=== PATIENT | male | born 1985 | race Caucasian/White ===

== ENCOUNTER 2024-04-11 20:49 | Emergency (ER) | payer OTHER, SELFPAY ==
[2024-04-11 20:56] VITALS: BP 135/87; PULSE 78; RESP 14; TEMP 36.7; O2SAT 100
--- NOTE | 2024-04-11 21:26 | ED.WOUNDLAC ---
HPI - Wound/Laceration General Chief Complaint: Wound/Laceration Stated Complaint: fall, laceration Time Seen by Provider: 04/11/24 21:13 History of Present Illness HPI narrative: 38-year-old male presents with at bedside for a head injury that occurred a few hours prior to arrival. Patient states he was setting up camera as on his carport when he stepped down off the ladder instead of to quickly, hitting his head up the top of the carport. He obtained a laceration to his right superior parietal scalp, bleeding is controlled. He did not lose consciousness. He is not anticoagulated. He denies seizure-like activity, vomiting, vision changes, amnesia. Last Tdap unknown. Related Data Allergies Allergy/AdvReac Type Severity Reaction Status Date / Time No Known Allergies Allergy Verified 04/11/24 21:00 Review of Systems Review of Systems: All systems reviewed & are unremarkable except as noted in HPI and below Exam Narrative: GENERAL: Well-appearing, well-nourished, and in no acute distress. HEAD: Normocephalic EYES: PERRLA and EOMI. ENT: Nares clear, no rhinorrhea or epistaxis. Mucous membranes moist. No hemotympanum. . No Clemente sign or raccoon eyes NECK: Supple. CHEST: Clear to auscultation. No respiratory distress. HEART: Regular rate and rhythm. No murmur heard. Normal peripheral pulses. EXTREMITIES: Normal range of motion. No edema. SKIN: 4 cm very superficial linear laceration to the right superior parietal scalp, laceration very well approximated with no BP wounds, no deep structures or foreign bodies visualized, no active bleeding. No surrounding hematoma, scalp crepitus, ecchymosis NEURO: No focal deficits. Alert and oriented x4. Cranial nerves 2-12 intact. Strength 5/5 in BUE and BLE. Sensation intact throughout. Normal rduoeo-ad-dwds. No pronator drift. Course Vital Signs Vital signs: Vital Signs Temperature 98.0 F 04/11/24 20:56 Pulse Rate 78 04/11/24 20:56 Respiratory Rate 14 04/11/24 20:56 Blood Pressure 135/87 04/11/24 20:56 Pulse Oximetry 100 04/11/24 20:56 Oxygen Delivery Room Air 04/11/24 20:56 Temperature 98.0 F 04/11/24 20:56 Pulse Rate 78 04/11/24 20:56 Respiratory Rate 14 04/11/24 20:56 Blood Pressure 135/87 04/11/24 20:56 Pulse Oximetry 100 04/11/24 20:56 Oxygen Delivery Room Air 04/11/24 20:56 Procedures Laceration Laceration 1: Date: 04/11/24 Time: 21:31 Site: scalp Size (cm): 4 Description: linear Depth: simple, single layer Pre-repair: wound explored and irrigated ====== Skin Level ====== Skin layer closed with: dermabond ====== Subcutaneous Layer ====== ====== Muscle Layer ====== ====== Tendon Layer ====== MDM - Wound/Laceration MDM Narrative Medical decision making narrative: 38-year-old male presents to emergency department for a head injury and laceration to the scalp that occurred a few hours prior to arrival. See HPI for further history. Triage vitals stable. Patient is neurovascularly intact. He has no signs or symptoms of basilar skull fracture, he is not anticoagulated, no amnesia or seizure-like activity. Patient and family at bedside agree CT brain is unnecessary per Faroese CT head injury/trauma rule. The laceration is very superficial in nature with no gaping wounds, to the structures or foreign bodies. There is no active bleeding, no surrounding hematoma or ecchymosis. laceration cleansed with normal saline and a thin layer of skin glue was applied over the laceration to encourage continuation of close approximation. Tdap updated in the ED. Wound care and strict ED return precautions were discussed. patient and are agreeable with the plan verbalized understanding. Discharged in stable condition. Discharge Plan Discharge Clinical Impression: Laceration of scalp, Head injury Patient Disposition: Home, Self-Care Condition: Stable Instructions: Antibiotic Form, Laceration (ED), Head Injury (DC) Additional Instructions: Your evaluated in the emergency department after head injury and laceration to her scalp. Your neurologic exam is reassuring. The laceration is very superficial but was cleaned with normal saline and closed with skin glue. Please keep the area clean and dry. Return to the emergency department if you develop vision changes, focal numbness or weakness, vomiting, altered mental status, surrounding redness or drainage to your wound, fever, or other concerning symptoms. Your tetanus shot was also updated today. Patient Language: Rwandan Follow-up/Referrals: UNKNOWN,DOCTOR [Non-Staff] -
[2024-04-11] MEDS: TETANUS,DIPHTHERIA,AC PERTUSSIS ADULT (0.5 ML) BOOSTRIX IM (21:32)
--- OUTSIDE RECORDS SUMMARY | 2024-04-11 21:43 | XMS_ITS | Patient Health Summary ---
Author Organization [facility] Address [address] [place] [address] Care Team Providers Care Communications Billing Analyst Name Role Phone Unavailable Primary Care Provider Unavailabl e Note from [facility],non-owned Affiliates and Associated Physician Practices is amultiple site organization consisting of ambulatory clinics and hospital sitesin [place], [place], [place] and [place]. This disclosure is being madepursuant to the Care Everywhere program and may not contain all information available regarding this patient. Last updated 17.[facility] Allergies No known active allergies Medications * Be aware that medications may not be up to date on this document. Alwaysverify current medications with the patient. * Esomeprazole Magnesium (NEXIUM PO) Social History Tobacco Use Types Packs/Day Years Used Date Smoking Tobacco: Former Sex and Gender Information Value Date Recorded Sex Assigned at Not on file Gender Identity Not on file Sexual Orientation Not on file Last Filed Vital Signs Vital Sign Reading Time Taken Comments Blood Pressure 128/76 01/29/2017 9:11 AM BUDGET ACCOUNTANT Pulse 110 01/29/2017 9:11 AM BUDGET ACCOUNTANT Temperature 38.1 C (100.5 F) 01/29/2017 9:11 AM BUDGET ACCOUNTANT Respiratory Rate - - Oxygen Saturation - - Inhaled Oxygen Concentration - - Weight 97.5 kg (215 lb) 01/29/2017 9:11 AM BUDGET ACCOUNTANT Height 180.3 cm (5' 11 ) 01/29/2017 9:11 AM BUDGET ACCOUNTANT Body Mass Index 29.99 01/29/2017 9:11 AM BUDGET ACCOUNTANT Procedures * STREP A SCREEN - POINT OF CARE (AMB) STL(Performed 01/29/2017) Performed for Tonsillitis Results * STREP A SCREEN - POINT OF CARE (AMB) STL (01/29/2017) Strep A Rapid POCT Negative Negative Strep A Internal Control Present Lot # [id number] Expiration Date 57527 Throat ENTIRE THROAT (SURFACE REGION OF NECK) / Unknown 01/29/2017 Hortensia Conteh CONDITIONING COACH-CHUTE TAPPER LAB - POINT OF CARE ORDERABLES
--- OUTSIDE RECORDS SUMMARY | 2024-04-11 21:43 | XMS_ITS | Encounter Summary ---
Author Organization [facility] Address [address] [place] [address] Phone Care Team Providers Care Fuel Cell Binder Name Role Phone Sheldon Browne MD Primary Care Provider [phone] Reason for Visit * Reason Comments Medication Refill Encounter Details Date Type Department Care Team (Late st Contact Info) Description 06/11/2021 Refill [facility] - Family Medicine - [place] [address] [place] [id number] Dyan Honeycutt Elizabeth, [facility] [address] [place] [address] Medication Refill Social History Tobacco Use Types Packs/Day Years Used Date Smoking Tobacco: Every Day Cigarettes 0.5 15 Smokeless Tobacco: Never Alcohol Use Standard Drinks/Week Comments Yes 10 (1 standard drink = 0.6 oz pu re alcohol) PHQ-2 Answer Date Recorded Total Score - Questions 1-9 0 02/01 Education Answer Date Recorded What is the highest level of school you have completed or the highest degree you have received? 12th grade 11/20/2020 Sexually Active Control Partners Comments Yes Sex and Gender Information Value Date Recorded Sex Assigned at Not on file Legal Sex Male 10:38 PM CDT Gender Identity Not on file Sexual Orientation Not on file documented as of this encounter Miscellaneous Notes * Telephone Encounter - Ashley Blanca - 06/13/2021 12:40 PM CDT My chart message sent to pt to make him aware. * Telephone Encounter - Dyan Honeycutt PAC - 06/13/2021 8:57 AM CDT Renewed for 2 months. Further refills from his primary care provider. * Telephone Encounter - Megan Duran RN - 06/13/2021 8:37 AM CDT Pharmacy requesting refill of: Requested Prescriptions Pending Prescriptions Disp Refills ??? esomeprazole (NexIUM) 40 MG CAPSULE DELAYED RELEASE [Pharmacy Med Name: ESOMEPRAZOLE MAGNESIUM 40MG DR FRANKLIN] 60 Capsule 3 Sig: TAKE 1 CAPSULE BY MOUTH TWICE DAILY Last fill: 09/18/2020 Patients last OV with GI: 02/09/2020 Next Office Visit with GI: None scheduled. Patient had EGD with Dr. Johnson on 04/21/2020: Saul Johnson, DO 04/24/2020 ??8:55 PM OSTEOPATHIC PHYSICIAN Biopsies negative. Nexium order pended, please review. documented in this encounter Plan of Treatment Not on file documented as of this encounter Visit Diagnoses Diagnosis Gastroesophageal reflux disease without esophagitis Esophageal reflux documented in this encounter Additional Health Concerns Assessment Noted Time PHQ-9 Depression Total Score: 0 01/12/20 20 1:44 PM OSTEOPATHIC PHYSICIAN documented as of this encounter Care Teams Fuel Cell Binder Relationship Specialty Start Date End Date Sheldon Browne MD [address] [address] PCP - General Family Medicine 11/13/15 documented as of this encounter
--- OUTSIDE RECORDS SUMMARY | 2024-04-11 21:43 | XMS_ITS | Referral Summary ---
Author Organization [facility] Address [address] [place] [address] Care Team Providers Care Installer Soft Top Name Role Phone Sheldon Browne MD Primary Care Provider [phone] Allergies No known active allergies Medications No known medications Active Problems Problem Noted Date Diagnosed Date Allergic state 01/21/2013 Overview (06/06/2016): ALLERGY, UNSPECIFIED Immunizations Name Administration Dates Next Due Influenza, Split 02/07/2011 Td, adsorbed 03/03/2006 Social History Tobacco Use Types Packs/Day Years Used Date Smoking Tobacco: Never Assessed Comments:Smoking History Pac ks/day: 0 Packs Alcohol Use Standard Drinks/Week Comments Yes 0 (1 standard drink = 0.6 oz pur e alcohol) Sex and Gender Information Value Date Recorded Sex Assigned at Not on file Legal Sex Male 12:48 PM CRITICAL CARE TRANSPORT NURSE Gender Identity Not on file Sexual Orientation Not on file Last Filed Vital Signs Vital Sign Reading Time Taken Comments Blood Pressure 146/91 06/27/2022 11:00 AM CDT Pulse 72 06/27/2022 11:00 AM CDT Temperature - - Respiratory Rate - - Oxygen Saturation - - Inhaled Oxygen Concentration - - Weight 104.5 kg (230 lb 6.4 oz) 023 11:00 AM CDT Height 177.8 cm (5' 10 ) 06/27/2022 11: 00 AM CDT Body Mass Index 33.06 06/27/2022 11:00 AM CDT Plan of Treatment Not on file Procedures Procedure Name Priority Date/Time Associated Diagnosis Comments SERUM LIPID PANEL Routine 10/24/2012 3:4 5 AM CDT from Last 3 Months or Most Recently Relevant to Health Maintenance Results * Serum lipid panel (10/24/2012 3:45 AM CDT) Cholesterol 182 125 - 200 mg/dl HISTORICAL RESULTS HDL 46 > OR = 40 mg/dl HISTORICAL RESULTS Triglycerides 138 <150 mg/dl HISTO RICAL RESULTS LDL 108 <130 mg/dl HISTORICA L RESULTS Comment: Desirable range <100 mg/dL for patients with CHD or diabetes and <70 mg/dL for diabetic patients with known heart disease. Chol/HDL ratio 4.0 < OR = 5.0 calc HISTORICAL RESULTS Non-HDL cholesterol, calculated 136 mg/dl HISTORICAL RESULTS Comment: Target for non-HDL cholesterol is 30 mg/dL higher than LDL cholesterol target. Serum 10/24/2012 3:45 AM CDT Narrative HISTORICAL RESULTS - 10/25/2012 2:00 AM CDT Test performed at [facility] [address] [place] [address] Director: WEN BUTCHER DO,MPH us Historical Provider LAB BLOOD ORDERABLES Kaye l Result HISTORICAL RESULTS from Last 3 Months or Most Recently Relevant to Health Maintenance Insurance [employer] Care Teams Installer Soft Top Relationship Specialty Start Date End Date Sheldon Browne MD [address] [id number] PCP - General 01/10/17
--- OUTSIDE RECORDS SUMMARY | 2024-04-11 21:43 | XMS_ITS | Clinical Summary ---
Author Organization [facility] Address [address] [place] [address] Care Team Providers Care Black Belt Name Role Phone Sheldon Browne MD Primary Care Provider [phone] Allergies No known active allergies Medications No known medications Active Problems Problem Noted Date Diagnosed Date Allergic state 01/21/2013 Overview (06/06/2016): ALLERGY, UNSPECIFIED Immunizations Name Administration Dates Next Due Influenza, Split 02/07/2011 Td, adsorbed 03/03/2006 Surgical History Surgery Date Site/Laterality Comments OTHER SURGICAL HISTORY R shoulder injury (poss clavicle fx, tear?): 4 estevez accident Medical History Medical History Date Comments Hx Other Medical 2004 R shoulder inju ry (poss clavicle fx, tear?) Hx Other Medical 2011 ER visit for pi nched nerve Family History Medical History Relation Name Comments Hypertension Father Hypertension; Other Mother 2 Alive and well; Breast cancer Mother's Sister Cancer -warner ast; Relation Name Status Comments Father Mother 1 Alive Mother 2 Mother's Sister Social History Tobacco Use Types Packs/Day Years Used Date Smoking Tobacco: Never Assessed Comments:Smoking History Pac ks/day: 0 Packs Alcohol Use Standard Drinks/Week Comments Yes 0 (1 standard drink = 0.6 oz pur e alcohol) Sex and Gender Information Value Date Recorded Sex Assigned at Not on file Legal Sex Male 12:48 PM SANDBLASTER SUPERVISOR Gender Identity Not on file Sexual Orientation Not on file Obstetrics History Last Filed Vital Signs Vital Sign Reading [...] 06/27/2022 11:00 AM CDT Plan of Treatment Health Maintenance Due Date Last Done Comments Albumin Creatinine Ratio, Urine 1987 Depression Screening 1987 Hemoglobin A1C 1987 Hepatitis C Screening 1987 eGFR 1987 Dilated Eye Exam 1987 Foot Exam 1987 Pneumococcal vaccine <65 (1 of 2 - PCV) 10/29/1993 Varicella Vaccines (1 of 2 - 13+ 2-dose series) 10/29/2000 Hepatitis B Screening 10/29/2005 Regular Well Visit/Exam 18-64 10/29/2005 DTaP/Tdap/Td Vaccine (1 - Tdap) 03/04/2006 03/03/2006 Lipid Panel 10/24/2013 10/24/2012 Covid-19 Vaccine (3 - 2023-2 5 season) 2023 01/05/2021, 12/05/2020 Influenza Vaccine (#1) 2023 02/07/2011 HPV Vaccines Aged Out No longer eligi ble based on patient's age to complete this topic Procedures Procedure Name Priority Date/Time Associated Diagnosis [...] 10/25/2012 2:00 AM CDT [place] [address] [address] [id number] Director: WEN BUTCHER DO,MPH us Historical Provider LAB BLOOD ORDERABLES Kaye younger Result HISTORICAL RESULTS from Last 3 Months or Most Recently Relevant to Health Maintenance Insurance [employer] Care Teams Black Belt Relationship Specialty Start Date End Date Sheldon Browne MD [address] [place] [phone] (Work) [facility] - General 01/10/17
--- OUTSIDE RECORDS SUMMARY | 2024-04-11 21:43 | XMS_ITS | Referral Summary ---
Author Organization [facility] Address [address] [place] [address] Care Team Providers Care College President Name Role Phone Unavailable Primary Care Provider Unavailabl e Source Comments [facility],non-owned Affiliates and Associated Physician Practices is amultiple site organization consisting of ambulatory clinics and hospital sitesin [place], [place], [place] and [place]. This disclosure is being madepursuant to the Care Everywhere program and may not contain all information available regarding this patient. Last updated 17.[facility] Allergies No known active allergies Medications * Be aware that medications may not be up to date on this document. Alwaysverify current medications with the patient. Medication Sig Dispensed Refills Start Date End Date Status Esomeprazole Magnesium (NEXIUM PO) Active Social History Tobacco Use Types Packs/Day Years Used Date Smoking Tobacco: Former Sex and Gender Information Value Date Recorded Sex Assigned at Not on file Gender Identity Not on file Sexual Orientation Not on file Last Filed Vital Signs Vital Sign Reading Time Taken Comments Blood Pressure 128/76 01/29/2017 9:11 AM CRITICAL POWER INSTALL TECHNICIAN Pulse 110 01/29/2017 9:11 AM CRITICAL POWER INSTALL TECHNICIAN Temperature 38.1 C (100.5 F) 01/29/2017 9:11 AM CRITICAL POWER INSTALL TECHNICIAN Respiratory Rate - - Oxygen Saturation - - Inhaled Oxygen Concentration - - Weight 97.5 kg (215 lb) 01/29/2017 9:11 AM CRITICAL POWER INSTALL TECHNICIAN Height 180.3 cm (5' 11 ) 01/29/2017 9:11 AM CRITICAL POWER INSTALL TECHNICIAN Body Mass Index 29.99 01/29/2017 9:11 AM CRITICAL POWER INSTALL TECHNICIAN Plan of Treatment Not on file
--- OUTSIDE RECORDS SUMMARY | 2024-04-11 21:43 | XMS_ITS | Clinical Summary ---
Author Organization [facility] Address [address] [place], [address] [address] Phone Care Team Providers Care Cellular Equipment Repairer Name Role Phone Sheldon Browne MD Primary Care Provider Allergies Active Allergy Reactions Criticality Noted Date Comments Hydrocodone-Acetaminophen Nausea 11/13/2015 Other Runny Nose 11/13/2015 Grass, dust, mold Runny nose, flu like symptoms Pollen Extract Runny Nose 11/13/2015 Flu like symptoms Medications No known medications Active Problems Problem Noted Date Diagnosed Date Gastroesophageal reflux disease without esophagi tis 02/09/2020 Immunizations Immunization Administration Dates Next Due Influenza Vaccine 02/07/2011 TD VACCINE 03/03/2006 Family History Medical History Relation Name Comments Hypertension Father Cancer Maternal Aunt skin, breast Stroke Maternal Grandfather Cancer Maternal Grandmother breast, blood cancer Hypertension Mother No Known Problems Paternal Grandmother Hypertension Paternal Uncle Stroke Paternal Uncle Relation Name Status Comments Father Maternal Aunt Maternal Grandfather Maternal Grandmother Mother Paternal Grandmother Alive Paternal Uncle Social History Tobacco Use Types Packs/Day Years Used Date Smoking Tobacco: Every Day Cigarettes 0.5 15 Smokeless Tobacco: Never Tobacco Cessation:Ready to Q uit: No; Counseling Given: Yes Alcohol Use Standard Drinks/Week Comments Yes 10 (1 standard drink = 0.6 oz pu re alcohol) [facility] Utilities Answer Date Recorded In the past 12 months has th e electric, gas, oil, or water company threatened to shut off services in your home? No 06/17/2023 Social Connection and Isolat ion Panel [NHANES] Answer Date Recorded In a typical week, how many times do you talk on the phone with family, friends, or neighbors? More than three times a week 06/17/2023 How often do you get togethe r with friends or relatives? Twice a week 06/17/2023 How often do you attend chur ch or adventist services? Never 06/17/2023 Do you belong to any clubs o r organizations such as congregational groups, unions, fraternal or athletic groups, or school groups? No 06/17/2023 How often do you attend meet ings of the clubs or organizations you belong to? Never 06/17/2023 Are you , , di vorced, , never , or living with a partner? 06/17/2023 AUDIT-C Answer Date Recorded Q1: How often do you have a drink containing alc ohol? Patient declined 06/17/2023 Q2: How many drinks containi ng alcohol do you have on a typical day when you are drinking? Patient declined 06/17/2023 Q3: How often do you have si x or more drinks on one occasion? Patient declined 06/17/2023 Overall Financial Resource Strain (CARDIA) Answe r Date Recorded How hard is it for you to pa y for the very basics like food, housing, medical care, and heating? Somewhat hard 06/17/2023 PHQ-2 Answer Date Recorded Total Score - Questions 1-9 0 06/01 [facility] - Occupational Stress Questionnaire Answer Date Recorded Do you feel stress - tense, restless, nervous, or anxious, or unable to sleep at night because your mind is troubled all the time - these days? Only a little 06/17/2023 Exercise Vital Sign Answer Date Recorde d On average, how many days pe r week do you engage in moderate to strenuous exercise (like a brisk walk)? 7 days 06/17/2023 On average, how many minutes do you engage in exercise at this level? 60 min 06/17/2023 Hunger Vital Sign Answer Date Recorded Within the past 12 months, y ou worried that your food would run out before you got the money to buy more. Never true 06/17/19 24 Within the past 12 months, t he food you bought just didn't last and you didn't have money to get more. Never true 06/17/2023 PRAPARE - Transportation Answer Date Re corded In the past 12 months, has l ack of transportation kept you from medical appointments or from getting medications? No 06/01 In the past 12 months, has l ack of transportation kept you from meetings, work, or from getting things needed for daily living? No 06/17/2023 Housing Stability Vital Sign Answer Juan Pablo e Recorded In the last 12 months, was t here a time when you were not able to pay the mortgage or rent on time? No 06/17/2023 In the last 12 months, how many places have you lived? 1 06/17/2023 In the last 12 months, was t here a time when you did not have a steady place to sleep or slept in a jail (including now)? No 06/17/2023 Education Answer Date Recorded What is the [...] Sign Reading Time Taken Comments Blood Pressure 120/68 07/25/2023 4:14 PM CDT Pulse 81 07/25/2023 4:14 PM CDT Temperature 36.4 C (97.5 F) 07/25/2023 4:14 PM CDT Respiratory Rate 16 07/25/2023 4:14 PM CDT Oxygen Saturation 96% 07/25/2023 4:14 PM CDT Inhaled Oxygen Concentration - - Weight 87.7 kg (193 lb 6.4 oz) 07/25/2023 4:14 P M CDT Height 177.8 cm (5' 10 ) 07/25/2023 4:14 PM CDT Body Mass Index 27.75 07/25/2023 4:14 PM CDT Plan of Treatment Health Maintenance Due Date Last Done Comments Hepatitis C Virus (HCV) Screening 1987 TdaP Immunization 1987 Hepatitis B Immunization (1 of 3 - 19+ 3-dose series) 10/29/2006 Pneumococcal Immunization Combined (1 of 2 - PCV) 10/29/2006 Influenza Immunization (#1) 2023 02/07/2011 SARS-COV-2 Immunization (3 - 2023- season) 2023 01/05/2021, 12/05/2020 Respiratory Syncytial Virus (RSV) Immunization (Adult) (1 - 1-dose 75+ series) 10/29/2062 Meningococcal Immunization (ACWY) Aged Out No longer eligible b ased on patient's age to complete this topic Rotavirus Immunization Aged Out No lo nger eligible based on patient's age to complete this topic Insurance [facility] Advance Directives * Full Code (Latest Code Status on File) Date Activated Date Inactivated Comments 09/02/2017 7:42 AM 09/02/2017 3:25 PM CPR-Full Treat ment: FULL ARREST: Attempt Resuscitation/CPR wit intubation and mechanical ventilation. PRE-ARREST: Use entire range of life support measures to stabilize the patient. Care Teams Cellular Equipment Repairer Relationship Specialty Start Date End Date Sehldon Browne MD [address] [address] PCP - General Family Medicine 11/13/15
--- OUTSIDE RECORDS SUMMARY | 2024-04-11 21:43 | XMS_ITS | Clinical Summary ---
Author Organization [facility] [employer] Address [address] 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 This disclosure is being madepursuant to the Care Everywhere program and may not contain all information available regarding this patient. Last updated 17.[facility] [employer] Allergies No known active allergies Medications * [...] Comments Blood Pressure 128/76 01/29/2017 9:11 AM LAW LIBRARIAN Pulse 110 01/29/2017 9:11 AM LAW LIBRARIAN Temperature 38.1 C (100.5 F) 01/29/2017 9:11 AM LAW LIBRARIAN Respiratory Rate - - Oxygen Saturation - - Inhaled Oxygen Concentration - - Weight 97.5 kg (215 lb) 01/29/2017 9:11 AM LAW LIBRARIAN Height 180.3 cm (5' 11 ) 01/29/2017 9:11 AM LAW LIBRARIAN Body Mass Index 29.99 01/29/2017 9:11 AM LAW LIBRARIAN Plan of Treatment Health Maintenance Due Date Last Done Comments HIV SCREENING 10/29/2002 HEPATITIS C SCREENING 10/25/2005 DTAP/TDAP/TD VACCINES (1 - Tdap) 10/29/2006 HEPATITIS B VACCINE (1 of 3 - 19+ 3-dose series) 10/29/2006 COVID-19 VACCINE (1 - 2023-2 5 season) 2023 INFLUENZA VACCINE (#1) 2023 DEPRESSION SCREENING 03/03/2024 ZOSTER VACCINE (1 of 2) 10/29/2037 HIB VACCINE Aged Out No longer eligi ble based on patient's age to complete this topic HPV VACCINE Aged Out No longer eligi ble based on patient's age to complete this topic MENINGOCOCCAL (Group B) VACCINE Aged Out No longer eligible based on patient's age to complete this topic MENINGOCOCCAL VACCINE Aged Out No amy venkata eligible based on patient's age to complete this topic PNEUMOCOCCAL VACCINE Aged Out No long er eligible based on patient's age to complete this topic
== END 2024-04-11 21:51 | disposition home or self-care (01) ==
LOC: ANHED 21:42
PROVIDERS: Emergency Provider Physician Assistant
DX: S01.01XA Laceration without foreign body of scalp, initial encounter (principal); Z23 Encounter for immunization; W22.8XXA Striking against or struck by other objects, initial encounter
CPT/HCPCS: 12002; 90471; 90715; 99282